=== PATIENT | female | born 1970 | race Two or more races ===

== ENCOUNTER 2016-12-19 12:07 | Inpatient (IN) | payer MEDICAID, OTHER ==
[~2016-12-19] VITALS: Ht 162.6 cm; Wt 86.6 kg
[2016-12-19] MEDS ORDERED: SODIUM CHLORIDE 0.9% 1,000 ML IVB ONE (17:40)
[2016-12-19] MEDS ORDERED: ONDANSETRON HCL 4 MG/2 ML VIAL IV ONE (17:45)
[2016-12-19] MEDS ORDERED: HYDROmorphone HCL 2 MG/ML VL IV ONE (17:45)
[2016-12-19 18:00] LABS: Urine Bilirubin Negative (Negative); Urine Blood TRACE /uL (Negative); Urine Color Yellow (Yellow); Urine Glucose Normal (Normal); Urine Ketone Negative (Negative); Urine Mucus FEW (None Seen); Urine RBC 4 /hpf (0 - 4); Urine Squamous Epithelial Cell FEW /hpf (<5); Urine Urobilinogen Normal (Negative); Urine pH 5.5 (5.0-8.0)
[2016-12-19 18:02] LABS: Urine Nitrite POSITIVE (Negative)
[2016-12-19 18:03] LABS: Basophils # (auto) 0 uL; Basophils % (auto) 0.1 % (0.0-2.0); CONDITION Y; DEFINITIVE SEE PRINTOUT; Eosinophils # (auto) 0 uL; Eosinophils % (auto) 0.3 % (0.0-7.0); Hematocrit 25.7 % (36.0-46.0); Lymphocytes # (auto) 1.1 uL; Lymphocytes % (auto) 11.4 % (10.0-50.0); Mean Corpuscular Hemoglobin 18.8 pg (28.0-32.0); Mean Corpuscular Hgb Conc. 31.1 g/dL (32.0-36.0); Mean Corpuscular Volume 60.3 fL (80.0-100.0); Mean Platelet Volume 7.8 fL (7.4-10.4); Monocytes # (auto) 0.5 uL; Monocytes % (auto) 5.2 % (0.0-12.0); Neutrophils # (auto) 7.9 uL; Platelet Count (auto) 429 10^3/uL (140-450); Red Cell Distribution Width 19.4 % (11.6-16.0); White Blood Cell 9.5 10^3/uL (4.4-10.8)
[2016-12-19 18:23] LABS: Albumin 3.7 g/dL (3.4-5.0); BUN/Creatinine Ratio 16.9; Bilirubin, Total 0.5 mg/dL (0.2-1.0); Calcium 8.4 mg/dL (8.5-10.1); Potassium 3.6 mmol/L (3.5-5.1); Total Protein 7.7 g/dL (6.4-8.2)
[2016-12-19 18:27] LABS: Anisocytosis Moderate; Giant Platelets Few; Hypochromia Moderate; Microcytosis Moderate; Ovalocytes FEW; Platelet Estimate Adequate
[2016-12-19 18:28] LABS: Schistocytes FEW; Tear Drop Cells FEW
[2016-12-19] MEDS ORDERED: metroNIDAZOLE 500MG/100ML 100 ML IV ONE (19:00)
[2016-12-19] MEDS: SODIUM CHLORIDE 0.9% 1,000 ML IV SCH (20:55)
[2016-12-19] MEDS: FAMOTIDINE (10MG/ML) 2ML VL IV SCH (21:00)
[2016-12-19] MEDS ORDERED: ONDANSETRON HCL 4 MG/2 ML VIAL IV PRN (21:00)
[2016-12-19] MEDS ORDERED: cefTRIAXone 1GM/50ML D5W 50 ML IV ONE (21:00)
[2016-12-19] MEDS ORDERED: MORPHINE SULF INJ 2 MG/ML SYRINGE 1ML IV PRN (21:00)
[2016-12-19] MEDS ORDERED: LOPERAMIDE 2 MG/10ml ORAL soln PO PRN (21:00)
[2016-12-19] MEDS ORDERED: ACETAMINOPHEN 325 MG TAB PO PRN (21:15)
[2016-12-20] MEDS: metroNIDAZOLE 500MG/100ML 100 ML IV SCH ×2 (01:37→10:06)
[2016-12-20 01:39] VITALS: BP 113/60
[2016-12-20] MEDS: SODIUM CHLORIDE 0.9% 1,000 ML IV SCH ×3 (03:35→20:55)
[2016-12-20 05:16] VITALS: BP 101/55
[2016-12-20 06:08] LABS: Basophils # (auto) 0 uL; Basophils % (auto) 0.4 % (0.0-2.0); CONDITION Y; DEFINITIVE SEE PRINTOUT; Eosinophils # (auto) 0 uL; Eosinophils % (auto) 0.7 % (0.0-7.0); Hemoglobin 7.3 g/dL (12.2-16.2); Lymphocytes % (auto) 16.7 % (10.0-50.0); Mean Corpuscular Hemoglobin 18.5 pg (28.0-32.0); Mean Corpuscular Hgb Conc. 30.3 g/dL (32.0-36.0); Mean Corpuscular Volume 61.2 fL (80.0-100.0); Mean Platelet Volume 8.1 fL (7.4-10.4); Monocytes # (auto) 0.5 uL; Monocytes % (auto) 8.8 % (0.0-12.0); Neutrophils # (auto) 4.2 uL; Neutrophils % (auto) 73.4 % (37.0-80.0); Platelet Count (auto) 361 10^3/uL (140-450); Red Cell Distribution Width 19.8 % (11.6-16.0); White Blood Cell 5.8 10^3/uL (4.4-10.8)
[2016-12-20 06:37] LABS: Albumin 3.1 g/dL (3.4-5.0); BUN/Creatinine Ratio 12.2; Bilirubin, Total 0.2 mg/dL (0.2-1.0); Calcium 7.9 mg/dL (8.5-10.1); Potassium 3.3 mmol/L (3.5-5.1); Total Protein 6.5 g/dL (6.4-8.2)
[2016-12-20 08:00] VITALS: BP 105/58
[2016-12-20] MEDS: FERROUS SULFATE 325 MG TAB PO SCH ×3 (08:38→19:02)
[2016-12-20] MEDS: cefTRIAXone 1GM/50ML D5W 50 ML IV SCH (08:38)
[2016-12-20] MEDS: FAMOTIDINE (10MG/ML) 2ML VL IV SCH ×2 (08:38→21:00)
[2016-12-20 09:00] VITALS: BP 105/58
[2016-12-20] MEDS: ENOXAPARIN SOD 40 MG/0.4 ML SYRINGE SC SCH (10:06)
[2016-12-20 13:00] VITALS: BP 114/53
[2016-12-20] MEDS ORDERED: POTASSIUM CHL 20 Meq TABLET PO ONE (14:15)
[2016-12-20 16:54] VITALS: BP 111/66
[2016-12-21 00:20] VITALS: BP 112/59
[2016-12-21 05:22] VITALS: BP 101/50
[2016-12-21 06:31] LABS: Basophils # (auto) 0 uL; Basophils % (auto) 0.6 % (0.0-2.0); CONDITION Y; DEFINITIVE SEE PRINTOUT; Eosinophils # (auto) 0.1 uL; Hematocrit 24.5 % (36.0-46.0); Hemoglobin 7.4 g/dL (12.2-16.2); Lymphocytes # (auto) 1.6 uL; Mean Corpuscular Hemoglobin 18.5 pg (28.0-32.0); Mean Corpuscular Hgb Conc. 30.3 g/dL (32.0-36.0); Mean Corpuscular Volume 61.2 fL (80.0-100.0); Mean Platelet Volume 8.6 fL (7.4-10.4); Monocytes # (auto) 0.7 uL; Monocytes % (auto) 11.3 % (0.0-12.0); Neutrophils # (auto) 3.4 uL; Neutrophils % (auto) 58.1 % (37.0-80.0); Platelet Count (auto) 431 10^3/uL (140-450); White Blood Cell 5.8 10^3/uL (4.4-10.8)
[2016-12-21 06:37] LABS: Red Cell Distribution Width 20.1 % (11.6-16.0)
[2016-12-21 06:58] LABS: Anisocytosis Moderate; Hypersegmented Neutrophils Present; Microcytosis Marked; Ovalocytes FEW
[2016-12-21 06:59] LABS: Hypochromia Marked; Platelet Estimate Adequate
[2016-12-21 07:06] LABS: BUN/Creatinine Ratio 11.8; Calcium 8.2 mg/dL (8.5-10.1); Magnesium 2.4 mg/dL (1.6-2.6); Potassium 3.7 mmol/L (3.5-5.1)
[2016-12-21 08:53] VITALS: BP 107/54
[2016-12-21] MEDS: FERROUS SULFATE 325 MG TAB PO SCH ×3 (10:48→18:32)
[2016-12-21] MEDS: cefTRIAXone 1GM/50ML D5W 50 ML IV SCH (10:48)
[2016-12-21] MEDS: ENOXAPARIN SOD 40 MG/0.4 ML SYRINGE SC SCH (10:48)
[2016-12-21] MEDS: FAMOTIDINE (10MG/ML) 2ML VL IV SCH (10:49)
[2016-12-21] MEDS: SODIUM CHLORIDE 0.9% 1,000 ML IV SCH (11:08)
[2016-12-21 13:42] VITALS: BP 113/69
[2016-12-21 17:13] VITALS: BP 122/76
[2016-12-21] MEDS ORDERED: SODIUM CHLORIDE 0.9% 1,000 ML IV SCH (20:55)
[2016-12-21 21:36] VITALS: BP 124/70
[2016-12-22 05:17] VITALS: BP 116/60
[2016-12-22 06:30] LABS: Hematocrit 25.4 % (36.0-46.0); Hemoglobin 7.7 g/dL (12.2-16.2)
[2016-12-22] MEDS: FERROUS SULFATE 325 MG TAB PO SCH (08:15)
[2016-12-22] MEDS: cefTRIAXone 1GM/50ML D5W 50 ML IV SCH (08:50)
[2016-12-22 09:00] VITALS: BP 108/58
[2016-12-22] MEDS ORDERED: FAMOTIDINE 20 MG TAB PO SCH (10:00)
[2016-12-22] MEDS ORDERED: LEVO500T21 PO (10:40)
[2016-12-22] MEDS ORDERED: FER325T PO (10:41)
[2016-12-22] MEDS: ENOXAPARIN SOD 40 MG/0.4 ML SYRINGE SC SCH (10:57)
[2016-12-22 13:00] VITALS: BP 116/66
[2016-12-22 14:04] VITALS: BP 108/58
== END 2016-12-22 15:45 | disposition home or self-care (01) | DRG 425 ==
LOC: ER 12:07 → OVERFLOW 12:08 → CENTRAL 22:45
PROVIDERS: ADMIT Family Medicine; ATTEND Internal Medicine
DX: E87.6 Hypokalemia (principal); K76.0 Fatty (change of) liver, not elsewhere classified; A08.4 Viral intestinal infection, unspecified; N39.0 Urinary tract infection, site not specified; K80.20 Calculus of gallbladder without cholecystitis without obstruction; D64.9 Anemia, unspecified; E66.9 Obesity, unspecified; B96.20 Unspecified Escherichia coli [E. coli] as the cause of diseases classified elsewhere; N88.8 Other specified noninflammatory disorders of cervix uteri; Q64.4 Malformation of urachus; Z68.32 Body mass index [BMI] 32.0-32.9, adult
CPT/HCPCS: 36415; 74176; 76705; 80048; 80053; 80061; 81001; 81025; 82150; 82270; 83540; 83550; 83690; 83735; 84443; 84484; 85014; 85018; 85025; 87086; 87088; 87186; 93005; 94761; 96365; 96367; 96375; J0696; J2405; J3490

== ENCOUNTER 2021-11-15 15:14 | Emergency (ER) | payer SELFPAY ==
[~2021-11-15] VITALS: Ht 165.1 cm; Wt 90.7 kg
[~2021-11-15 15:14] MED LIST: FER325T PO; LEVO500T31 PO
[2021-11-15] MEDS ORDERED: LIDOCAINE 1% (LOCAL ANESTH.) PF 5ml SDV ID ONE (16:30)
[2021-11-15] MEDS ORDERED: IBUPROFEN 600 MG TAB PO ONE (17:30)
[2021-11-15] MEDS ORDERED: SULF400T11 PO (18:09)
[2021-11-15] MEDS ORDERED: HYDR-4902 PO (18:09)
[2021-11-15 19:04] VITALS: BP 126/64
== END 2021-11-15 19:01 | disposition home or self-care (01) ==
LOC: ER 15:14
DX: N75.0 Cyst of Bartholin's gland (principal); Z86.2 Personal history of diseases of the blood and blood-forming organs and certain disorders involving the immune mechanism; Z79.899 Other long term (current) drug therapy
CPT/HCPCS: 56420

== ENCOUNTER 2023-01-23 18:23 | Inpatient (IN) | payer SELFPAY ==
[~2023-01-23] VITALS: Ht 165.1 cm; Wt 98.9 kg
[~2023-01-23 18:23] MED LIST changes: +HYDR-4902 PO; +SULF400T11 PO
[2023-01-23 20:29] LABS: Basophils # (auto) 0 10 ^3/uL (0-0.2); Basophils % (auto) 0.5 % (0.0-2.0); Eosinophils # (auto) 0.2 10 ^3/uL (0-0.8); Eosinophils % (auto) 2.5 % (0.0-7.0); Hemoglobin 13.1 g/dL (12.2-16.2); Lymphocytes % (auto) 25.3 % (10.0-50.0); Mean Corpuscular Hemoglobin 27.9 pg (28.0-32.0); Mean Corpuscular Hgb Conc. 33.5 g/dL (32.0-36.0); Mean Corpuscular Volume 83.3 fL (80.0-100.0); Monocytes # (auto) 0.8 10 ^3/uL (0-1.3); Neutrophils # (auto) 4.9 10 ^3/uL (1.6-8.6); Neutrophils % (auto) 61.7 % (37.0-80.0); Nucleated Red Blood Cells % 0.1 %; Red Blood Cells 4.68 10^6/uL (4.0-5.20); Red Cell Distribution Width 15.3 % (11.8-14.3); White Blood Cell 7.9 10^3/uL (4.4-10.8)
[2023-01-23 20:45] LABS: Albumin 3.4 g/dL (3.4-5.0); Potassium 3.6 mmol/L (3.5-5.1)
[2023-01-23 20:50] LABS: BUN/Creatinine Ratio 15.4 (10.0-20.0); Bilirubin, Total 0.2 mg/dL (0.2-1.0); Total Protein 7.4 g/dL (6.4-8.2)
[2023-01-23 20:54] LABS: Urine Bacteria NONE SEEN /hpf (None Seen); Urine Blood 2+ /uL (Negative); Urine Clarity HAZY (Clear); Urine Color Yellow (Yellow); Urine Mucus MANY (None Seen); Urine Protein, UAD 1+ (Negative); Urine Specific Gravity 1.024 (1.001-1.035); Urine Urobilinogen Normal (Negative); Urine WBC 38 /hpf (0 - 5)
[2023-01-23] MEDS ORDERED: ONDANSETRON HCL 4 MG/2 ML VIAL IV ONE (23:00)
[2023-01-23] MEDS ORDERED: metroNIDAZOLE 500MG/100ML 100 ML IV ONE (23:00)
[2023-01-23] MEDS ORDERED: CIPROFLOXACIN 400MG/200ML 200 ML IV ONE (23:00)
[2023-01-23] MEDS ORDERED: MORPHINE SULFATE 4 MG/ML SYR/VIAL IV ONE (23:00)
[2023-01-23] MEDS ORDERED: LACTATED RINGER'S 1,000 ML IV ONE (23:00)
[2023-01-23] MEDS ORDERED: ACETAMINOPHEN 325 MG TAB PO PRN (23:30)
[2023-01-24] MEDS ORDERED: HYDROcodone-ACET 7.5/325MG TAB PO PRN
[2023-01-24] MEDS ORDERED: HYDROcodone-ACET 5/325MG TAB PO PRN
[2023-01-24 05:11] LABS: Hematocrit 39.5 % (36.0-46.0); Hemoglobin 13.2 g/dL (12.2-16.2); Mean Corpuscular Hemoglobin 27.9 pg (28.0-32.0); Mean Corpuscular Hgb Conc. 33.3 g/dL (32.0-36.0); Mean Corpuscular Volume 83.7 fL (80.0-100.0); Red Blood Cells 4.72 10^6/uL (4.0-5.20); Red Cell Distribution Width 15.3 % (11.8-14.3); White Blood Cell 7.8 10^3/uL (4.4-10.8)
[2023-01-24 05:39] LABS: Albumin 3.8 g/dL (3.4-5.0); BUN/Creatinine Ratio 21.3 (10.0-20.0); Potassium 3.8 mmol/L (3.5-5.1)
[2023-01-24 05:54] LABS: Bilirubin, Total 0.3 mg/dL (0.2-1.0); Total Protein 7.7 g/dL (6.4-8.2)
[2023-01-24] MEDS: metroNIDAZOLE 500MG/100ML 100 ML IV SCH ×3 (06:00→21:38)
[2023-01-24 06:02] LABS: Band Neutrophils % (manual) 0; Basophils % (manual) 0 (0.0-2.0); Blast Cells 0; Metamyelocytes % 0; Myelocytes % 0; Promyelocytes % 0; Reactive Lymphocytes 0
[2023-01-24] MEDS ORDERED: cefTRIAXone 1GM/50ML D5W 50 ML IV SCH (09:00)
[2023-01-24] MEDS ORDERED: FLUCONAZOLE 200MG/100ML 100 ML IV ONE (11:00)
[2023-01-24] MEDS ORDERED: FLUCONAZOLE 100 MG TAB PO ONE (11:00)
[2023-01-24 14:41] LABS: Eosinophils % (manual) 2 (0-7); Lymphocytes % (manual) 23 (10.0-50.0); Monocytes % (manual) 9 (0-12)
[2023-01-24 17:31] LABS: INR 1.01 (0.9-1.15); Partial Thromboplastin Time 35.9 SEC (24.5-34.5); Prothrombin Time 10.6 sec (9.3-11.8)
[2023-01-24 18:44] LABS: Platelet Estimate Adequate
[2023-01-24 20:00] VITALS: PULSE 56; RESP 18; O2SAT 97
[2023-01-24 20:53] VITALS: PULSE 52; RESP 18; O2SAT 98
[2023-01-24 22:00] VITALS: BP 117/57; PULSE 56; RESP 18; TEMP 98.2; O2SAT 97
[2023-01-24] MEDS ORDERED: MICONAZOLE NITRATE 2 % VAGINAL CREAM 45 GM PV SCH (22:00)
[2023-01-25 05:00] VITALS: BP 133/64; PULSE 51; RESP 20; TEMP 98.3; O2SAT 100
[2023-01-25] MEDS: metroNIDAZOLE 500MG/100ML 100 ML IV SCH (05:48)
[2023-01-25 06:35] LABS: Basophils # (auto) 0 10 ^3/uL (0-0.2); Basophils % (auto) 0.5 % (0.0-2.0); Eosinophils # (auto) 0.2 10 ^3/uL (0-0.8); Eosinophils % (auto) 2.5 % (0.0-7.0); Hematocrit 36.1 % (36.0-46.0); Hemoglobin 11.9 g/dL (12.2-16.2); Lymphocytes # (auto) 1.9 10 ^3/uL (0.4-5.4); Lymphocytes % (auto) 28.1 % (10.0-50.0); Mean Corpuscular Hemoglobin 27.7 pg (28.0-32.0); Mean Corpuscular Volume 83.9 fL (80.0-100.0); Monocytes # (auto) 0.7 10 ^3/uL (0-1.3); Monocytes % (auto) 10.4 % (0.0-12.0); Neutrophils # (auto) 3.9 10 ^3/uL (1.6-8.6); Neutrophils % (auto) 58.5 % (37.0-80.0); Nucleated Red Blood Cells % 0.1 %; Red Blood Cells 4.31 10^6/uL (4.0-5.20); Red Cell Distribution Width 15.2 % (11.8-14.3); White Blood Cell 6.6 10^3/uL (4.4-10.8)
[2023-01-25 06:39] LABS: Chloride 106 mmol/L (98-107); Potassium 4.3 mmol/L (3.5-5.1); Sodium 141 mmol/L (136-145)
[2023-01-25 06:40] LABS: Calcium 8.7 mg/dL (8.5-10.1)
[2023-01-25 06:45] LABS: BUN/Creatinine Ratio 18.5 (10.0-20.0); Blood Urea Nitrogen 12 mg/dL (9-23); Glucose 95 mg/dL (74-106)
[2023-01-25 08:00] VITALS: PULSE 56; RESP 18; O2SAT 97
[2023-01-25 09:00] VITALS: BP 133/84; PULSE 64; RESP 20; TEMP 98.8; O2SAT 96
[2023-01-25] MEDS ORDERED: levoFLOXacin 500MG 100 ML IV SCH (10:00)
[2023-01-25] MEDS ORDERED: HYDR-4902 PO (10:21)
[2023-01-25] MEDS ORDERED: CIPR-173 PO (10:24)
[2023-01-25] MEDS ORDERED: MET500T PO (10:24)
[2023-01-25] MEDS ORDERED: MICO1KIT7 VA (10:25)
[2023-01-25 12:33] VITALS: BP 139/79; PULSE 58; RESP 20; TEMP 98.9; O2SAT 97
== END 2023-01-25 14:15 | disposition home or self-care (01) | DRG 690 ==
LOC: ER 18:23 → OVERFLOW 23:31 → WEST WING 01-24 18:45
PROVIDERS: ADMIT Internal Medicine; ATTEND Student in an Organized Health Care Education/Training Program
DX: N30.01 Acute cystitis with hematuria (principal); K57.32 Diverticulitis of large intestine without perforation or abscess without bleeding; K80.20 Calculus of gallbladder without cholecystitis without obstruction; E66.9 Obesity, unspecified; B37.31 Acute candidiasis of vulva and vagina; K76.0 Fatty (change of) liver, not elsewhere classified; E07.9 Disorder of thyroid, unspecified; M32.9 Systemic lupus erythematosus, unspecified; Z68.36 Body mass index [BMI] 36.0-36.9, adult
CPT/HCPCS: 36415; 74176; 76705; 80048; 80053; 81001; 83036; 83690; 84443; 84702; 85007; 85025; 85027; 85610; 85730; 87040; 87086; 87088; 87186; G0378; J1956; J2405; J3490